=== PATIENT | female | born 1955 | race Hispanic/Latino ===

== ENCOUNTER 2018-05-20 21:54 | Inpatient (IN) | payer OTHER ==
[2018-05-20 22:49] LABS: Basophils % (Auto) 0.4 % (0.0-1.8); Eosinophils % (Auto) 0.3 % (0.0-4.3); Lymphocytes # (Auto) 0.9 K/mm3 (1.2-5.4); Lymphocytes % (Auto) 10.2 % (13.4-35.0); Mean Corpuscular HGB Conc 36 % (30-34); Mean Corpuscular Volume 99 fl (79-97); Monocytes # (Auto) 0.6 K/mm3 (0.0-0.8); Monocytes % (Auto) 7.1 % (0.0-7.3); Platelet Count 258 K/mm3 (140-440); Red Blood Count 3.93 M/mm3 (3.65-5.03); Red Cell Distribution Width 14.4 % (13.2-15.2)
[2018-05-20 23:10] LABS: BUN/Creatinine Ratio 24; Blood Urea Nitrogen 12 mg/dL (7-17); Calcium 9.3 mg/dL (8.4-10.2); Hemolysis Index 12
--- NOTE | 2018-05-21 00:20 | Emergency Department Report ---
ED Syncope HPI - General Chief Complaint: Syncope Stated Complaint: SYNCOPE W/FALL RT KNEE DISCOMFORT Time Seen by Provider: 05/20/18 22:31 - History of Present Illness Initial Comments: Mrs. Mora is a very pleasant 63 yo female with hx of HTN and colon cancer who presents after fainting episode. 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 The episode occurred during a transAtlantic flight from [place] to [place]. During the flight, she recalls walking down steps to the crew rest area. The next moment that she can recall is laying on a seat with several persons providing medical aid. The flight was continued. The episode occurred approximately 5:30 PM. The flight landed at 8:55 PM. She has a superficial posterior head wound. She has right knee swelling. She has right knee discomfort. She does not recall any trauma. Ambulance met the plane at the airport. Paramedics transported her to our emergency department. She recalled experiencing a fainting episode 30 years ago due to heat exposure. Otherwise no history of cardiac disease. She was diagnosed and treated for colon cancer almost 5 years ago. She was treated with colon resection and chemotherapy. She has a left chest port in place She lives in [facility]. She was treated at [facility] in [facility]. She has been in her normal state of health. She lives alone. She is a . She has an excellent support base of family friends. She drinks at least 5 nights a week. She drinks several drinks per night. She drinks wine and cocktails. Medications: Amlodipine Vijaya. She takes vitamin E, calcium, multivitamin Timing/Prior Episodes: single episode today Precipitating Factors: Positive: none Context: standing, other (walking down steps) Loss of Consciousness: prolonged (minutes) Current Symptoms: back to normal - Related Data Allergies/Adverse Reactions: Allergies No Known Allergies Allergy (Unverified 05/20/18 22:08) ED Review of Systems ROS: Stated complaint: SYNCOPE W/FALL RT KNEE DISCOMFORT Other details as noted in HPI Comment: All other systems reviewed and negative Constitutional: denies: fever, malaise Respiratory: denies: cough Cardiovascular: denies: chest pain ED Past Medical Hx - Past Medical History Previous Medical History?: Yes Hx Hypertension: Yes Hx of Cancer: Yes - Surgical History Additional Surgical History: Colon resection. Left knee anterior cruciate ligament reconstruction - Social History Smoking Status: Never Smoker Substance Use Type: Alcohol ED Physical Exam - General Limitations: No Limitations General appearance: alert, in no apparent distress - Head Head exam: Present: atraumatic, normocephalic - Eye Eye exam: Present: normal appearance - ENT ENT exam: Present: mucous membranes moist - Neck Neck exam: Present: normal inspection, full ROM - Respiratory Respiratory exam: Present: normal lung sounds bilaterally. Absent: respiratory distress, wheezes, rhonchi - Cardiovascular Cardiovascular Exam: Present: regular rate, normal rhythm, normal heart sounds. Absent: systolic murmur, diastolic murmur, rubs, gallop - GI/Abdominal GI/Abdominal exam: Present: soft, normal bowel sounds. Absent: distended, tenderness, guarding, rebound - Extremities Exam Extremities exam: Present: other (right knee global swelling with mild tenderness intact pedal pulses in the right lower extremity) - Back Exam Back exam: Present: normal inspection - Neurological Exam Neurological exam: Present: alert, oriented X3 - Psychiatric Psychiatric exam: Present: normal affect, normal mood - Skin Skin exam: Present: warm, dry, intact, normal color. Absent: rash ED Course Vital Signs 05/20/18 05/20/18 05/20/18 22:06 22:15 22:23 Temperature 98.2 F Pulse Rate 87 89 Respiratory 14 Rate Blood Pressure 166/92 Blood Pressure [Left] O2 Sat by Pulse 95 Oximetry 05/20/18 05/20/18 22:26 23:00 Temperature 98.3 F Pulse Rate 85 Respiratory 12 Rate Blood Pressure 166/92 171/87 Blood Pressure 166/92 [Left] O2 Sat by Pulse 96 91 Oximetry ED Medical Decision Making - Lab Data Result diagrams: 05/20/18 22:24 05/20/18 22:24 - EKG Data -: EKG Interpreted by Ri EKG shows normal: sinus rhythm, axis, intervals, QRS complexes, ST-T waves Rate: normal - Radiology Data Radiology results: report reviewed right knee radiographs: joint effusion - Medical Decision Making Syncopal episode, closed head injury, right knee sprain Due to age and absence of precipitating factors or preceding symptoms, hospital admission for cardiac monitoring is indicated. With elevated d-dimer history of transatlantic flight, CTA chest ordered. My co rohini will f/u results. Dr. Bonilla hospitalist accepted Mrs. Mora for admission. I provided bridging admission orders to telemetry. Critical care attestation.: If time is entered above; I have spent that time in minutes in the direct care of this critically ill patient, excluding procedure time. ED Disposition Clinical Impression: Syncope, Closed head injury, Right knee sprain Disposition: OP ADMIT IP TO THIS HOSP Is pt being admited?: No Does the pt Need Aspirin: No Condition: Stable
--- NOTE | 2018-05-21 01:06 | XRay Report ---
PROCEDURE: RIGHT KNEE 3 VIEWS TECHNIQUE: RIGHT knee radiographs, AP, lateral, and sunrise views. CPT 93224 HISTORY: Pain. COMPARISONS: None . FINDINGS: Fracture (s) and/or Dislocation(s): None . Alignment: Normal . Joint space(s): Normal . Soft tissues: Normal . Bone mineralization: Normal . Foreign bodies: None . There is a small joint effusion. IMPRESSION: There are no acute bony abnormalities. Joint effusion. . This document is electronically signed by Faisal Simon MD., May 21 2018 01:03:54 AM ET
[2018-05-21 01:32] LABS: Alanine Aminotransferase 24 units/L (7-56); Albumin 4.2 g/dL (3.9-5)
[2018-05-21 01:41] LABS: Bilirubin,Direct < 0.2 mg/dL (0-0.2)
[2018-05-21] MEDS ORDERED: TYLENOL PO PRN (02:44)
[2018-05-21] MEDS ORDERED: ZOFRAN IV PRN (02:46)
[2018-05-21] MEDS ORDERED: NACL 0.9% 1000 ML 1,000 ML IV SCH (03:00)
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
--- NOTE | 2018-05-21 03:10 | Cat Scan Report ---
PROCEDURE: CT ANGIO CHEST TECHNIQUE: A CT angiogram was performed following the intravenous injection of iodinated contrast. R otational, sagittal, and coronal MIP reconstructions were reviewed. HISTORY: syncope COMPARISONS: None FINDINGS: The heart size is normal. Pericardial fluid is not seen. The thoracic aorta is normal in configuratio n. There is no evidence of dissection. There is no evidence of pulmonary embolus or vascular congesti on. The lungs are negative for infiltrates or effusions. There is minimal scarring in both lung bases . At the thoracic inlet the thyroid gland appears normal. There are bilateral peripherally calcified breast implants both of which show incidental intracapsular ruptures. There is no extracapsular ruptu re bilaterally. There are small foci of air in both implants. In the upper abdomen the adrenal glands appear normal. The skeletal structures reveal mild disc degeneration in the dorsal spine with a dext roscoliosis. IMPRESSION: No evidence of pulmonary embolus, aortic dissection, or vascular congestion. Mild scarring in both lung bases. No acute infiltrates or effusions. Incidental findings of the patient's bilateral breast implants noted.. This document is electronically signed by Juan Bauer MD., May 21 2018 03:08:25 AM ET
[2018-05-21] MEDS ORDERED: NACL 0.9% 1000 ML 1,000 ML ONE (04:35)
[2018-05-21] MEDS ORDERED: APRESOLINE IV PRN (04:45)
[2018-05-21 06:04] LABS: Creatine Kinase MB 1.8 ng/mL (0.0-4.0)
[2018-05-21 06:13] LABS: Amphetamine Screen,Urine PRESUMPTIVE NEGATIVE; Benzodiazepines Screen,Urine PRESUMPTIVE NEGATIVE; Cannabinoid Screen,Urine PRESUMPTIVE NEGATIVE; Cocaine Screen,Urine PRESUMPTIVE NEGATIVE; Methadone Screen,Urine PRESUMPTIVE NEGATIVE; Opiate Screen,Urine PRESUMPTIVE NEGATIVE
--- NOTE | 2018-05-21 06:28 | History and Physical Report ---
CHIEF COMPLAINT: Syncopal attack. 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 The patient states the flight continued and eventually, the patient was brought to the Emergency Room. The patient did not remember the incident and denied history of prior chest pain, prior shortness of breath, fever, nausea, or vomiting. There was also no history of antecedent palpitation and the patient also denied history of diaphoresis. PAST MEDICAL HISTORY: Pertinent for hypertension. Also, the patient has past medical history of colon cancer. PAST SURGICAL HISTORY: Pertinent for colon resection, left knee anterior cruciate ligament reconstruction, and possible breast surgery. FAMILY HISTORY: Noncontributory. SOCIAL HISTORY: The patient drinks alcohol occasionally. Does not smoke cigarettes and does not use illicit drugs. MEDICATIONS: The patient's home medications include amlodipine 10 mg by mouth daily. ALLERGIES: There are no known drug allergies. REVIEW OF SYSTEMS: CONSTITUTIONAL: There is no fever, no chills, no diaphoresis. HEENT: There is no headache or sore throat. CARDIOVASCULAR SYSTEM: There is no chest pain or orthopnea. RESPIRATORY SYSTEM: There is no shortness of breath or cough. GASTROINTESTINAL SYSTEM: There is no nausea; no vomiting; no abdominal pain, diarrhea, or constipation. NEUROLOGICAL SYSTEM: Syncopal episode noted. No dizziness, and change in mental status was also noted. MUSCULOSKELETAL SYSTEM: There is no joint pain or swelling. DERMATOLOGICAL SYSTEM: There is no skin rash or itching. GENITOURINARY SYSTEM: There are no dysuria, hematuria, or flank pain. Rest of system review is normal. PHYSICAL EXAMINATION: GENERAL: At the time of exam, the patient was found to be alert and oriented x 3 and not in acute distress. VITAL SIGNS: At the initial time of presentation showed temperature of 98.2 degrees Fahrenheit, pulse of 89, respirations 14, blood pressure 166/92, O2 sat of 95% on room air. HEENT: Show pupils to be equal, round, reactive to light, and accommodative. Extraocular muscles are intact. NECK: Supple with no JVD or carotid bruit. CARDIOVASCULAR SYSTEM: Shows normal first and second heart sounds with no gallops or murmurs. RESPIRATORY SYSTEM: Shows good air entry on both sides of the lung with no abnormal breath sounds. GASTROINTESTINAL SYSTEM: Shows abdomen to be full, soft, and nontender with no organomegaly or rigidity. NEUROLOGIC: Shows no focal deficit. MUSCULOSKELETAL SYSTEM: Shows no joint swelling or tenderness. DERMATOLOGICAL SYSTEM: Shows no skin rash. GENITOURINARY SYSTEM: Shows no costovertebral angle tenderness. IMAGING STUDIES: The patient had CT angiogram of the chest done that shows no evidence of pulmonary embolism, no aortic dissection or vascular congestion. There is finding of mild scarring in both the lung bases with no acute infiltrate or effusion. The patient also had CT of the head without contrast done that came back unremarkable. The patient had x-ray of right knee done because of pain secondary to the fall when the patient had a syncopal attack and the x-ray showed that there are no acute bony abnormalities or joint effusion. DIAGNOSES: 1. Syncopal attack. 2. Right knee sprain. PLAN OF CARE: 1. The patient will be admitted to Telemetry. 2. The patient will have 2D echo done this morning. Also, will have bilateral carotid Doppler done this morning. 3. The patient will be on sequential compressive devices for DVT prophylaxis and will have urine drug screen and alcohol level checked this morning. 4. The patient will have serial cardiac enzymes involving troponin, total CK, and CK-MB checked q. 6 hours x 2 more levels. 5. The patient will be on p.r.n. medications like Tylenol 650 mg by mouth every 4 hours for fever and headache and IV Zofran 4 mg every 8 hours for nausea and vomiting. 6. The patient will be on home medications that involves amlodipine 10 mg by mouth daily for treatment of hypertension and will also be on IV hydralazine 10 mg every 4 hours as needed for blood pressure of 160/90 or more. 7. The patient will be on IV normal saline running at 75 mL an hour. ADDENDUM: The patient's diet will be 2 g sodium diet. JOB# [id number] OCN/NTS
[2018-05-21] MEDS: NORVASC PO SCH (10:00)
--- NOTE | 2018-05-21 10:26 | Consultation ---
History of Present Illness Consult date: 05/21/18 Consult reason: syncope History of present illness: Patient is a 63 year old woman who is admitted with syncope. 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 During the flight, patient recalls walking down steps. When she came to herself, she was lying of the floor surround by the flight crew. She denies chest pain, unusual shortness of breath and palpitations when she came to herself. She complains of posterior head pain, right knee pain and swelling. Negative head CT scan. No evidence of pulmonary embolism by chest CTA. 12 lead ECG shows sinus rhythm, no acute ST or Twave changes. Medications and Allergies Allergies Allergy/AdvReac Type Severity Reaction Status Date / Time No Known Allergies Allergy Verified 05/21/18 02:52 Home Medications Medication Instructions Recorded Confirmed Last Taken Type amLODIPine [Norvasc] 10 mg PO DAILY 05/21/18 05/21/18 Unknown History Active Meds: Active Medications Acetaminophen (Tylenol) 650 mg PO Q4H PRN PRN Reason: Fever >101 Amlodipine Besylate (Norvasc) 10 mg PO DAILY CHILO Hydralazine HCl (Apresoline) 10 mg IV Q4HR PRN PRN Reason: Blood Pressure Sodium Chloride (Nacl 0.9% 1000 Ml) 1,000 mls @ 75 mls/hr IV DIRECT CHILO Last Admin: 05/21/18 04:41 Dose: 75 mls/hr Documented by: Ondansetron HCl (Zofran) 4 mg IV Q8H PRN PRN Reason: Nausea And Vomiting Physical Examination Vital Signs Pulse 87 05/20/18 22:06 General appearance: no acute distress HEENT: Positive: PERRL Neck: Positive: trachea midline Cardiac: Positive: Reg Rate and Rhythm Lungs: Positive: Decreased Breath Sounds Neuro: Positive: Grossly Intact Extremities: Absent: edema Results 05/20/18 22:24 05/20/18 22:24 Cardiac Enzymes 05/21/18 05/21/18 Range/Units 01:01 05:16 AST 25 (5-40) units/L CK-MB (CK-2) 1.8 (0.0-4.0) ng/mL CBC 05/20/18 Range/Units 22:24 WBC 8.9 (4.5-11.0) K/mm3 RBC 3.93 (3.65-5.03) M/mm3 Hgb 14.0 (10.1-14.3) gm/dl Hct 39.0 (30.3-42.9) % Plt Count 258 (140-440) K/mm3 Lymph # 0.9 L (1.2-5.4) K/mm3 [place] # 0.6 (0.0-0.8) K/mm3 Eos # 0.0 (0.0-0.4) K/mm3 Baso # 0.0 (0.0-0.1) K/mm3 Comprehensive Metabolic Panel 05/20/18 05/21/18 Range/Units 22:24 01:01 Sodium 138 (137-145) mmol/L Potassium 3.6 (3.6-5.0) mmol/L Chloride 99.2 (98-107) mmol/L Carbon Dioxide 24 (22-30) mmol/L BUN 12 (7-17) mg/dL Creatinine 0.5 L (0.7-1.2) mg/dL Glucose 120 H (65-100) mg/dL Calcium 9.3 (8.4-10.2) mg/dL Direct Bilirubin < 0.2 (0-0.2) mg/dL Indirect Bilirubin 0.3 mg/dL AST 25 (5-40) units/L ALT 24 (7-56) units/L Alkaline Phosphatase 91 (35-129) units/L Total Protein 7.0 (6.3-8.2) g/dL Albumin 4.2 (3.9-5) g/dL Assessment and Plan - Patient Problems (1) Syncope Current Visit: Yes Status: Acute Plan to address problem: Syncope Negative head CT scan. No evidence of pulmonary embolism by chest CTA. Further cardiac evaluation with an echocardiogram and persantine thallium stress test for further cardiac evaluation.
[2018-05-21] MEDS ORDERED: LEXISCAN IV ONE ×2 (11:43→11:46)
[2018-05-21] MEDS ORDERED: K-DUR PO ONE (14:45)
--- NOTE | 2018-05-21 15:26 | Event Note ---
Date: 05/21/18 Patient is 63 yo presented with syncope. Also right knee pain and swelling after fall during syncope. I have seen and examined her. PT eval . Analgesic prn. Stress test neg as per Dr. Olmedo and he ordered Propranolol for prolonged QT. I discussed with patient.
--- NOTE | 2018-05-21 15:54 | Vascular Lab Report ---
PROCEDURE: VL CAROTID DUPLEX BILAT TECHNIQUE: Color Doppler and grayscale imaging of both carotid arteries. Note: Measurement of caroti d stenosis is based on flow velocity values that correlate with the [place] Symptomatic Caroti d Endarterectomy Trial (NASCET) based stenosis criteria using the internal carotid artery diameter as the denominator for stenosis calculation. HISTORY: SYNCOPE , closed head injury, hypertension COMPARISONS: None FINDINGS: Echogenic plaque is present without evidence of ulceration in the carotid artery system bilaterally. This predominates in the carotid bifurcation bilaterally. Peak systolic CCA and ICA velocities are within normal limits bilaterally corresponding to estimated diameter stenosis of 0 to 49 %. ICA/CCA peak systolic ratios are within normal limits: Right: 0.94 Left: 1.33 Flow is antegrade in both vertebral arteries. No evidence of aneurysm or occlusion. IMPRESSION: Bilateral carotid artery atherosclerotic change No hemodynamically significant stenosis (<50% diameter) based on ratios, velocities, and color Dopple r images. This document is electronically signed by Taco Juan MD., May 21 2018 03:51:32 PM ET
[2018-05-21 16:10] LABS: Creatine Kinase MB 1.3 ng/mL (0.0-4.0)
[2018-05-21] MEDS: INDERAL LA PO SCH (16:53)
--- NOTE | 2018-05-21 19:29 | Treadmill Report ---
ORDERING PHYSICIAN: Dr. Reyes. INDICATION: Syncope. FINDINGS: There is no scintigraphic evidence of myocardial ischemia. The left ventricle is normal in size and systolic function, left ventricular ejection fraction is measured at 76%. Normal wall motion and wall thickening is noted on gated imaging. CONCLUSION: Normal perfusion scan. JOB# [id number] EBONI/LEDY
[2018-05-22 08:46] VITALS: BP 140/75
[2018-05-22] MEDS: INDERAL LA PO SCH (10:44)
[2018-05-22] MEDS: NORVASC PO SCH (10:46)
[2018-05-22] MEDS ORDERED: IBUPROFEN PO SCH (11:00)
--- NOTE | 2018-05-22 11:31 | Progress Note ---
Assessment and Plan Cardiac workup for syncope so far negative, patient is recommended for outpatient electrophysiologic follow-up and event monitoring. Otherwise no further inpatient cardiac workup is indicated, we'll follow on an intermittent basis. Subjective Date of service: 05/22/18 Interval history: Patient is comfortable, no cardiac complaints. Her major complaint currently is pain and swelling of the right knee following her fall injury, which is affecting her ambulation. Objective Vital Signs Temp Pulse Resp BP Pulse Ox 05/22/18 10:46 71 140/75 05/22/18 10:44 71 140/75 05/22/18 08:45 71 140/75 94 05/22/18 04:50 97.9 F 73 18 140/80 93 05/22/18 00:25 98.5 F 80 18 173/90 96 05/21/18 20:06 77 05/21/18 19:35 98.3 F 18 146/79 05/21/18 16:53 86 138/70 05/21/18 16:48 86 18 138/70 95 05/21/18 12:16 148/79 05/21/18 12:15 145/71 05/21/18 12:14 149/73 05/21/18 12:13 167/82 05/21/18 12:00 161/85 - Physical Examination General: No Apparent Distress HEENT: Positive: PERRL Neck: Positive: trachea midline Cardiac: Positive: Reg Rate and Rhythm Neuro: Positive: Grossly Intact Abdomen: Positive: Soft Skin: Positive: Clear Extremities: Absent: edema - Labs and Meds Cardiac Enzymes 05/21/18 Range/Units 15:11 CK-MB (CK-2) 1.3 (0.0-4.0) ng/mL
--- NOTE | 2018-05-22 11:32 | Discharge Summary ---
Providers - Providers Date of Admission: 05/21/18 03:50 Date of discharge: 05/22/18 Attending physician: FERNANDO QUARLES 05/21/18 08:47 Consult to Physician [CONS] Routine Comment: Consulting Provider: FERNANDO SOSA Physician Instructions: Reason For Exam: Syncope 05/21/18 15:24 Consult to Physician [CONS] Routine Comment: Consulting Provider: FLOYD PEREZ Physician Instructions: Reason For Exam: Tender swollen right knee with effusion after fall 05/21/18 15:25 Physical Therapy Evaluation and Treat [CONS] Routine Comment: Reason For Exam: Difficult walking - tender swollen right knee Hospitalization Condition: Fair Hospital course: Patient is 63 yo with hypertension, previous colon cancer. 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 She states she passed out while walking down steps in plane. She was eventually brought to ED, evaluated and admitted. Cardiology was consulted. Cardiology was consulted and she was evaluated by Dr. Olmedo. He noted prolonged QT interval and had concern about long QT syndrome. He recommended Propranolol LA 60mg po daily and this was started. Stress test was negative. She also complained of right knee pain and swelling after fall due to syncope. X ray revealed mild right knee joint effusion. She was evaluated by Physical therapist and given Crutches for ambulation. She was then discharged home on Propranolol to follow with cardiology and Orthopedic Surgeon as outpatient. Disposition: TO HOME OR SELFCARE - Discharge Diagnoses (1) Vasovagal syncope Status: Acute (2) Hypertension Status: Acute (3) Right knee sprain Status: Acute (4) Syncope Status: Acute Core Measure Documentation - Palliative Care Palliative Care/ Comfort Measures: Not Applicable - Core Measures Any of the following diagnoses?: none Exam - Constitutional Vitals: Temp Pulse Resp BP Pulse Ox 97.9 F 71 18 140/75 94 05/22/18 04:50 05/22/18 10:46 05/22/18 04:50 05/22/18 10:46 05/22/18 08:45 Plan Diet: low fat, low cholesterol, low salt Durable Medical Equipment Needed Upon Discharge: Crutches Additional Instructions: 1.Follow up with PCP in 2-3 days. 2.Follow up with Orthopedic Surgeon in 1-2 days. 3.Follow up with Punch Finisher in 1 week for prolonged QT interval. 3.Ambulate with crutches, weight bearing as tolerated. Follow up with: ALMEIDA,TAY [Other] - 7 Days Prescriptions: Propranolol LA [Inderal LA] 60 mg PO QDAY #30 capsule Ibuprofen [Motrin 400 MG tab] 400 mg PO Q8H #20 tablet Famotidine [Pepcid] 20 mg PO BID #30 tablet Other Discharge Orders: Crutches (Christian) Location: None Selected
== END 2018-05-22 16:05 | disposition home or self-care (01) | DRG 74 ==
LOC: ED 21:54 → 4A 05-21 03:50
PROVIDERS: ADMIT Internal Medicine; ATTEND Internal Medicine
DX: G90.8 Other disorders of autonomic nervous system (principal); S06.0X9A Concussion with loss of consciousness of unspecified duration, initial encounter; R55 Syncope and collapse; M25.561 Pain in right knee; M25.461 Effusion, right knee; I10 Essential (primary) hypertension; S09.90XA Unspecified injury of head, initial encounter; S83.91XA Sprain of unspecified site of right knee, initial encounter; F80.82 Social pragmatic communication disorder; W17.89XA Other fall from one level to another, initial encounter; Z79.899 Other long term (current) drug therapy; Z85.038 Personal history of other malignant neoplasm of large intestine; Z72.89 Other problems related to lifestyle; Y93.89 Activity, other specified; Y92.89 Other specified places as the place of occurrence of the external cause; Y99.8 Other external cause status
CPT/HCPCS: 36415; 70450; 71275; 78452; 80048; 80076; 80307; 80320; 82550; 82553; 83690; 84484; 85025; 85379; 93005; 93010; 93017; 93306; 93880; 99285; G0378; A9502; G0480; J2785; J7030; Q9967